=== PATIENT | female | born 1990 | race Caucasian/White ===

== ENCOUNTER 2023-12-19 21:59 | Observation (INO) ==
--- NOTE | 2023-12-19 23:18 | Emergency Department Note ---
Impression & Plan Cholecystitis, Right upper quadrant abdominal pain ED Provider Note CHIEF COMPLAINT: Right upper quadrant pain HISTORY OF PRESENT ILLNESS: This 33-year-old female patient presents to the emergency department via private vehicle for evaluation of right upper quadrant pain. The patient describes a burning sensation which has been ongoing since 530. She states approximately 30 to 45 minutes prior to this, she ate cooked cauliflower with butter. The patient reports history of "problems" with her gallbladder. She reports history of polyps and states that she has had infections in the past. She states most recently was about 2 years ago when she was in [place]. She was treated with antibiotics and never followed up with a surgeon because she did not have any insurance at the time. Patient states she has not followed up locally here with either primary care or surgery, though notes she does have insurance. She did not take any medication tonight to help with her pain. She states that the pain is waxing and waning. It does not radiate anywhere. She denies any exacerbating or alleviating factors. She does not have 1-2 episodes of vomiting after the onset of the pain. The patient felt that the vomiting did help with her pain. REVIEW OF SYSTEMS: A 10 system review of systems was performed with positives and pertinent negatives listed in the history of present illness. All other systems were reviewed and are negative. ALLERGIES: Tramadol, morphine PHYSICAL EXAM: VITALS: Vitals are noted on the nurse's note and reviewed by myself. Vital signs stable. GENERAL: This is a 33-year-old female, in no acute distress, nondiaphoretic, well-developed well-nourished. SKIN: The skin was without rashes, erythema, edema, or bruising. There is no tenting of the skin. Capillary refill less than 2 seconds. HEAD: Normocephalic atraumatic. EYES: Conjunctivae without injection, sclerae without icterus. NECK: Supple without nuchal rigidity. No lymphadenopathy. Cervical spine is nontender. No JVD. HEART: Regular rate and rhythm without murmurs gallops or rubs. LUNGS: Clear to auscultation bilaterally without wheezes, rales or rhonchi. No retractions or accessory muscle use. ABDOMEN: Positive bowel sounds x 4. Soft, nontender, without masses or organomegaly. Mortensen sign positive. No guarding or rebound tenderness. No CVA tenderness bilaterally. MUSCULOSKELETAL: No muscle atrophy, erythema, or edema noted. Full range of motion without joint tenderness in all extremities. No tenderness to palpation. Normal gait. Strength 5/5 throughout. NEURO: Patient was alert and oriented to person place and time. No focal neurological deficits. 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 The monitor showed a normal sinus rhythm at a ventricular rate of 64 bpm, per my interpretation. Imaging as interpreted by myself and the radiologist revealed question trace pericholecystic fluid, reported positive sonographic Mortensen sign, no cholelithiasis and normal CBD, with radiologist interpretation as noted. I agree with the radiologist's findings as based upon my independent interpretation. EMERGENCY DEPARTMENT COURSE: The patient was seen and evaluated as above. The patient presents to the emergency department for right upper quadrant pain. This started approximately 5 hours prior to arrival. The patient does report a history of "gallbladder problems". She has been treated with antibiotics for cholecystitis in the past. The patient is concerned for gallbladder etiology of her pain. IV access was obtained, labs are drawn. Labs reviewed. Per my interpretation, no leukocytosis or anemia. No thrombocytopenia. Renal, hepatic function and electrolytes without significant abnormality. Lipase 13. hCG negative. Urinalysis negative for blood or evidence of infection. Ultrasound was completed and reviewed by myself radiologist as noted. This was concerning for very cholecystic fluid and some inflammation of the gallbladder, but normal CBD and no cholelithiasis. There was a positive Mortensen sign. Patient was medicated with IV Toradol and Zofran as well as IV fluids. On reevaluation, the patient notes improvement in her pain, but is continuing to experience right upper quadrant abdominal pain with tenderness on repeat abdominal exam. She is no longer nauseated or vomiting. Given her persistent pain as well as ultrasound findings, I did recommend evaluation by general surgery. I discussed case with Eric Montiel PA-C with general surgery. He did see the patient and recommended admission and requested the medicine team complete the admission, as he once the patient have a HIDA scan. Patient was started on IV Zosyn. I discussed the case with Dr. Olvera, [facility] hospitalist physician regarding admission. Please see general surgery and hospitalist dictation regarding ongoing management and care of this patient. Case was discussed with the attending physician. This visit is during a period of high volume and high acuity in the emergency department. I attest that I have personally reviewed the patient medication list. I attest that I have reviewed the patient's blood pressure and it was found to be normotensive GCS: 15 In the evaluation and treatment of this patient the following differential diagnoses were entertained: appendicitis, diverticulitis, obstruction, inflammatory bowel disease, renal colic, PUD, biliary pathology, pancreatitis, mesenteric ischemia, aortic pathology, infections, genitourinary, UTI, perforated viscus, as well as others were entertained. The chart was completed utilizing [employer] Speech voice recognition software. Grammatical errors, random word insertions, pronoun errors, and incomplete sentences are an occasional consequence of this system due to software limitations, ambient noise, and hardware issues. Any formal questions or concerns about the content, text, or information contained within the body of this dictation should be directly addressed to the provider for clarification. Past Med/Surg History Problem List Right upper quadrant abdominal pain (Acute) Cholecystitis (Acute) Bilateral hip joint arthritis Medical History No pertinent past medical history Social History Smoking Status: Current every day smoker Tobacco Type: Cigarettes Preferred Language: Swazi Feels Safe at Home: Yes Allergies Allergies Allergy/AdvReac Type Severity Reaction Status Date / Time tramadol Allergy Intermediate HIVES/RASH Verified 03/01/23 01:53 morphine AdvReac Severe SEVERE Verified 03/01/23 01:53 VOMITING Home Meds Home Medications Medication Instructions Recorded Confirmed No Known Home Medications 03/01/23 03/01/23 Results & Data (ED) Vital Signs Vital Signs - 24 hr 12/19/23 22:10 12/19/23 22:50 12/19/23 23:29 Temperature 36.8 C Temperature Source Oral Pulse Rate 82 87 Pulse Rate [Finger] 64 Pulse Rhythm Regular Pulse Rhythm [Finger] Pulse Strength [Finger] Respiratory Rate 18 19 18 Respiratory Effort / Characteristics Non-Labored Spontaneous Respiratory Depth Normal Respiratory Pattern Regular Blood Pressure 126/80 Blood Pressure [Right Arm] 114/80 Blood Pressure Mean 95 Blood Pressure Mean [Right Arm] 91 Blood Pressure Position [Right Arm] Pulse Oximetry 99 100 98 Oxygen Delivery Method Room Air Room Air Room Air Sepsis Recent Fever Within 48 Hours No Sepsis New/Unexplained Change in Mental Status N/A Sepsis Action Taken by Nursing No Action Required 12/20/23 00:42 12/20/23 00:54 12/20/23 02:00 Temperature Temperature Source Pulse Rate 67 Pulse Rate [Finger] 69 77 Pulse Rhythm Pulse Rhythm [Finger] Regular Regular Pulse Strength [Finger] Normal Normal Respiratory Rate 18 18 Respiratory Effort / Characteristics Non-Labored Spontaneous Non-Labored Spontaneous Respiratory Depth Normal Normal Respiratory Pattern Regular Regular Blood Pressure Blood Pressure [Right Arm] 119/72 112/69 Blood Pressure Mean Blood Pressure Mean [Right Arm] 87 83 Blood Pressure Position [Right Arm] Semi-fowlers Lying Pulse Oximetry 98 98 Oxygen Delivery Method Room Air Room Air Sepsis Recent Fever Within 48 Hours Sepsis New/Unexplained Change in Mental Status Sepsis Action Taken by Nursing 12/20/23 04:00 12/20/23 04:40 Temperature Temperature Source Pulse Rate 55 L Pulse Rate [Finger] 67 Pulse Rhythm Pulse Rhythm [Finger] Regular Pulse Strength [Finger] Normal Respiratory Rate 18 Respiratory Effort / Characteristics Non-Labored Spontaneous Respiratory Depth Normal Respiratory Pattern Regular Blood Pressure Blood Pressure [Right Arm] 107/54 L Blood Pressure Mean Blood Pressure Mean [Right Arm] 71 Blood Pressure Position [Right Arm] Lying Pulse Oximetry 98 Oxygen Delivery Method Room Air Sepsis Recent Fever Within 48 Hours Sepsis New/Unexplained Change in Mental Status Sepsis Action Taken by Nursing Laboratory Data 12/19/23 23:39 12/19/23 23:39 Lab Results 12/19/23 12/19/23 Range/Units 23:23 23:39 WBC 8.73 (4.8-10.8) K/ul RBC 3.98 L (4.20-5.40) M/uL Hgb 12.0 (12.0-16.0) g/dl Hct 35.9 L (37.0-47.0) % MCV 90.2 (80.0-100.0) fL MCH 30.2 (25.0-34.0) pg MCHC 33.4 (32.0-36.0) g/dL RDW Std Deviation 47.5 H (36.4-46.3) fL RDW Coeff of Jason 14.3 (11.5-14.5) % Plt Count 204 (130-400) K/uL MPV 12.0 (9.4-12.4) fL Immature Gran % (Auto) 0.1 % Neut % (Auto) 50.9 % Lymph % (Auto) 38.8 % [place] % (Auto) 6.5 % Eos % (Auto) 3.2 % Baso % (Auto) 0.5 % Neut # (Auto) 4.44 (1.40-6.50) K/uL Lymph # (Auto) 3.39 (1.20-3.40) K/uL [place] # (Auto) 0.57 (0.11-0.59) K/uL Eos # (Auto) 0.28 (0.00-0.50) K/uL Baso # (Auto) 0.04 (0.00-0.20) K/uL Immature Gran # (Auto) 0.01 (0.01-0.20) K/uL Sodium 140 (136-145) mmol/L Potassium 3.5 (3.5-5.1) mmol/L Chloride 108 H (98-107) mmol/L Carbon Dioxide 28 (21-32) mmol/L Anion Gap 4 (3-11) BUN 8 (6-23) mg/dl Creatinine 0.62 (0.6-1.2) mg/dl Est Cr Clr Drug Dosing 109.4 ml/min Est GFR ( Amer) 136.4 ml/min Est GFR (Non-Af Amer) 117.6 ml/min BUN/Creatinine Ratio 12.9 (10-20) Glucose 104 H (70-99(Fasting)) mg/dl Calcium 8.5 L (8.6-10.3) mg/dl Total Bilirubin 0.2 (0.2-1.0) mg/dl AST 14 (13-39) U/L ALT 11 (7-52) U/L Alkaline Phosphatase 37 (34-104) U/L Total Protein 6.5 (6.0-8.3) gm/dl Albumin 4.1 (3.4-5.0) gm/dl Globulin 2.4 L (2.5-4.0) gm/dl Albumin/Globulin Ratio 1.7 (0.9-2) Lipase 13 (11-82) U/L HCG, Qual Negative (Negative) Urine Color Yellow Urine Appearance Clear (Clear) Urine pH 6.5 (4.5-7.5) Ur Specific [place] 1.027 (1.000-1.030) Urine Protein Negative (Negative) Urine Glucose (UA) Negative (Negative) Urine Ketones Negative (Negative) Urine Blood Negative (Negative) Urine Nitrite Negative (Negative) Urine Bilirubin Negative (Negative) Urine Urobilinogen Negative (Negative) Ur Leukocyte Esterase Negative (Negative) Administered Medications Discontinued Medications Sodium Chloride (Nss) 1,000 mls @ 999 mls/hr IV .Q1H1M ONE Stop: 12/19/23 23:52 Last Infusion: 12/20/23 00:39 Dose: Infused Documented By: Admin: 12/19/23 23:32 Dose: 999 mls/hr Documented By: IDD Piperacillin Sod/Tazobactam Sod (Zosyn) 4.5 gm in 120 mls @ 240 mls/hr IV NOW ONE Stop: 12/20/23 05:16 Last Admin: 12/20/23 05:02 Dose: 240 mls/hr Documented By: IDD Ketorolac Tromethamine (Ketorolac 30 Mg/Ml Vial) 30 mg IV NOW STA Stop: 12/20/23 00:18 Last Admin: 12/20/23 00:39 Dose: 30 mg Documented By: IDD Ondansetron HCl (Ondansetron Inj 2 Mg/Ml 2 Ml Vial) 4 mg IV NOW STA Stop: 12/20/23 00:18 Last Admin: 12/20/23 00:39 Dose: 4 mg Documented By: IDD Imaging Data Radiologist's Impression: Abdomen Ultrasound 12/20/23 00:00 Exam(s): US ABDOMEN LIMITED EXAM: US Abdomen Limited, Right Upper Quadrant CLINICAL HISTORY: Reason for exam: RUQ pain. TECHNIQUE: Real-time ultrasound of the right upper quadrant with image documentation. COMPARISON: None. FINDINGS: Liver: Liver measures 16 cm in length. No solid mass. A 1.1 x 0.5 cm cyst is seen at the peripheral aspects of the left hepatic lobe. No intrahepatic bile duct dilation. Gallbladder: A somewhat distended bladder. No gallstones. Normal bladder wall thickness. Question trace pericholecystic fluid. Reported positive sonographic Mortensen's sign. Common bile duct: Unremarkable as visualized. No stones. No dilation. Pancreas: Partially obscured by bowel gas. Unremarkable as visualized. Right kidney: 10.9 cm in length. No stones. No solid mass. No hydronephrosis.. IMPRESSION: No demonstrated cholelithiasis. Question trace pericholecystic fluid. Reported positive sonographic Mortensen's sign. The need for nuclear HIDA scan can be determined clinically. Normal CBD. Otherwise unremarkable right upper quadrant abdominal ultrasound.. Electronically signed by: Jennie Mulligan MD, CRISTOPHER 12/20/23 03:57 AM Discharge Plan Visit Data Chief Complaint: Abdominal Pain Stated Complaint: SHARP BRUNING PAIN/ABD/GAL BLADDER ED Provider: Rene Mcqueen ED Midlevel Provider: Alba Figueredo Discharge Problem: Cholecystitis, Right upper quadrant abdominal pain Patient Disposition: Being Evaluated by Surgeon Forms Stand Alone Forms: [facility] Shortlist Prescriptions Prescriptions: No Action No Known Home Medications Referrals Referrals: PCP,NO [Primary Care Provider] -
[2023-12-19] MEDS: SODIUM CHLORIDE 0.9% 1,000 ML IV ONE (23:32)
[2023-12-19 23:35] LABS: Appearance Urine Clear (Clear); Bilirubin Urine Negative (Negative); Blood Urine Negative (Negative); Color Urine Yellow; Glucose Urine UA Negative (Negative); Ketones Urine Negative (Negative); Leukocyte Esterase Urine Negative (Negative); Nitrite Urine Negative (Negative); Protein Urine Negative (Negative); Specific Gravity Urine 1.027 (1.000-1.030); Urobilinogen Urine Negative (Negative); pH Urine 6.5 (4.5-7.5)
[2023-12-20 00:03] LABS: Basophils # (auto) 0.04 K/uL (0.00-0.20); Basophils % (auto) 0.5 %; Eosinophils # (auto) 0.28 K/uL (0.00-0.50); Eosinophils % (auto) 3.2 %; Hematocrit (blood only) 35.9 % (37.0-47.0); Immature Granulocytes # (auto) 0.01 K/uL (0.01-0.20); Immature Granulocytes % (auto) 0.1 %; Lymphocytes # (auto) 3.39 K/uL (1.20-3.40); Lymphocytes % (auto) 38.8 %; Mean Corpuscular Hemoglobin 30.2 pg (25.0-34.0); Mean Corpuscular Hgb Conc 33.4 g/dL (32.0-36.0); Mean Corpuscular Volume 90.2 fL (80.0-100.0); Monocytes # (auto) 0.57 K/uL (0.11-0.59); Monocytes % (auto) 6.5 %; Neutrophils # (auto) 4.44 K/uL (1.40-6.50); Neutrophils % (auto) 50.9 %; Platelet Count 204 K/uL (130-400); RDW Coefficient of Variation 14.3 % (11.5-14.5); RDW Standard Deviation 47.5 fL (36.4-46.3); Red Blood Count 3.98 M/uL (4.20-5.40); White Blood Count 8.73 K/ul (4.8-10.8)
[2023-12-20 00:15] LABS: Albumin Globulin Ratio 1.7 (0.9-2); Albumin Level 4.1 gm/dl (3.4-5.0); BUN Creatinine Ratio 12.9 (10-20); Bilirubin,Total 0.2 mg/dl (0.2-1.0); Calcium 8.5 mg/dl (8.6-10.3); Creatinine Clr Calc Pharmacy 109.4 ml/min; Est GFR (African American) 136.4 ml/min; Est GFR (Non-African American) 117.6 ml/min; Globulin 2.4 gm/dl (2.5-4.0); Potassium 3.5 mmol/L (3.5-5.1); Total Protein 6.5 gm/dl (6.0-8.3)
[2023-12-20 00:21] LABS: Pregnancy Test, Serum Negative (Negative)
[2023-12-20] MEDS: KETOROLAC 30 MG/ML VIAL IV STA (00:39)
[2023-12-20] MEDS: ONDANSETRON INJ 2 MG/ML 2 ML VIAL IV STA (00:39)
--- NOTE | 2023-12-20 03:58 | Ultrasound Report ---
Exam(s): US ABDOMEN LIMITED EXAM: US Abdomen Limited, Right Upper Quadrant CLINICAL HISTORY: Reason for exam: RUQ pain. TECHNIQUE: Real-time ultrasound of the right upper quadrant with image documentation. COMPARISON: None. FINDINGS: Liver: Liver measures 16 cm in length. No solid mass. A 1.1 x 0.5 cm cyst is seen at the peripheral aspects of the left hepatic lobe. No intrahepatic bile duct dilation. Gallbladder: A somewhat distended bladder. No gallstones. Normal bladder wall thickness. Question trace pericholecystic fluid. Reported positive sonographic Mortensen's sign. Common bile duct: Unremarkable as visualized. No stones. No dilation. Pancreas: Partially obscured by bowel gas. Unremarkable as visualized. Right kidney: 10.9 cm in length. No stones. No solid mass. No hydronephrosis.. IMPRESSION: No demonstrated cholelithiasis. Question trace pericholecystic fluid. Reported positive sonographic Mortensen's sign. The need for nuclear HIDA scan can be determined clinically. Normal CBD. Otherwise unremarkable right upper quadrant abdominal ultrasound.. Electronically signed by: Jennie Mulligan MD, TAYAR 12/20/23 03:57 AM
[2023-12-20] MEDS: PIPERACILLIN/TAZOBACTAM 4.5 GM/120 ML BAG IV ONE (05:02)
--- NOTE | 2023-12-20 05:14 | Surgery Consultation ---
Date of Consultation December 20, 2023 Assessment & Plan (1) Right upper quadrant abdominal pain: I discussed with the treating clinician the emergency department we are requesting medical admission for the patient As noted the patient does have significant abdominal pain, however there is no clear evidence of cholecystitis and there is no cholelithiasis noted on her ultrasound. In addition, her LFTs and lipase are normal. In order to further delineate if the cause of patient's abdominal pain is michaela rly her gallbladder we will order a HIDA scan and request that a gallbladder ejection fraction be done with this study. If her HIDA scan demonstrates that patient has a biliary cause of her abdominal pain consideration will be given to performing a cholecystectomy In the interim patient should be kept n.p.o. Antibiotics have been initiated in the emergency department and may continue Analgesics should be continued Antiemetics to be continued Further hydration with intravenous fluid should be employed At the present time patient is normotensive without tachycardia or fever and is nontoxic-appearing. Additional recommendations with forthcoming based on pending studies and her clinical course as it unfolds Supervising Physician Co-Signing Physician Notes This case was discussed with the surgical PA overnight. I agreed with this plan. Upon seeing the patient this am, I recommend add Protonix to her current regimen. GI to consider EGD as she is still displaying tenderness this am epigastric and RUQ. HIDA without acute cholecystitis, possible some level of dyskinesia but not convinced that is causing prolonged symptoms to this severity when she has now been NPO for several hours. History of Present Illness Reason for Consultation: Abdominal pain History of Present Illness Patient says that her current episode of pain began yesterday after eating. She has associated nausea and vomiting but did not have any fevers, shakes, or chills. Patient has not noted any radiation or modifying factors to her pain. The patient does note that she has been having on and off abdominal pain for approximately 2 years. She previously sought medical care in [place] and was told that she needed to have her gallbladder removed but never did so due to insurance reasons. She does note that her pain is sometimes but not always triggered by eating food. She has had prior abdominal surgeries in the form of 2 C-sections and a tubal ligation. This is a 33-year-old female who presented emergency department secondary to abdominal pain. Since arrival to the emergency department the patient has had an abdominal ultrasound which independent reviewed. There were no gallstones noted but the patient did have questionable pericholecystic fluid. Common bile duct appeared normal on the study. The gallbladder was somewhat distended. However the gallbladder wall was of normal thickness. Labs included CBC white blood cell count and platelet count were normal. Hemoglobin was normal. Her hematocrit was 35.9. Chemistry profile showed sodium and potassium in the BUN and creatinine were normal. Her LFTs were nonelevated. Her lipase was not elevated. A test was negative. A urinalysis without active infection. Of note, the patient did have a [facility]. This study showed the absence of gallstones but the patient was noted to have gallbladder polyps. There is no evidence of acute cholecystitis on the study. At the time my interview the patient continued to have pain in the right upper quadrant of her abdomen but was in no distress. Concerning past medical history the patient says that she suffers from arthritis but denies any other medical problems Concerning past surgical history she had abdominal surgeries listed above and she also had bilateral hip surgeries secondary to arthritis Concerning social history she currently smokes cigarettes Concerning family history she had an aunt that suffered from gallbladder disease Allergies Allergy/AdvReac Type Severity Reaction Status Date / Time tramadol Allergy Intermediate HIVES/RASH Verified 03/01/23 01:53 morphine AdvReac Severe SEVERE Verified 03/01/23 01:53 VOMITING Home Medications Medication Instructions Recorded Confirmed Type No Known Home Medications 03/01/23 12/20/23 History Patient History Medical History No pertinent past medical history Social History Smoking Status: Current every day smoker Tobacco Type: Cigarettes Preferred Language: Panamanian Feels Safe at Home: Yes Review of Systems Review of Systems: All systems reviewed & are unremarkable except as noted in HPI & below Physical Exam Constitutional: WD/WN, vitals as above Eyes: No scleral jaundice noted, patient wears glasses ENMT: Ears: no hearing impairment and no external ear abnormality No sublingual jaundice noted Neck: trachea midline Respiratory: normal respiratory effort; no respiratory distress and no labored breathing Cardiovascular: Rate/Rhythm: regular rate and regular rhythm Gastrointestinal (Abdomen): Abdomen is soft and nondistended. It is nonrigid. Patient did have significant pain with palpation in the right upper quadrant. Musculoskeletal: No calf tenderness Skin: + rash Neurologic: moves all extremities Psychiatric: A+Ox3, euthymic affect Results & Data Vital Signs (Past 12 Hours) Vital Signs Temp Pulse Pulse Resp BP BP Pulse Ox 12/20/23 04:40 55 L 12/20/23 04:00 67 18 107/54 L 98 12/20/23 02:00 77 18 112/69 98 12/20/23 00:54 67 12/20/23 00:42 69 18 119/72 98 12/19/23 23:29 87 18 98 12/19/23 22:50 64 19 114/80 100 12/19/23 22:10 36.8 C 82 18 126/80 99 O2 Del Method 12/20/23 04:40 12/20/23 04:00 Room Air 12/20/23 02:00 Room Air 12/20/23 00:54 12/20/23 00:42 Room Air 12/19/23 23:29 Room Air 12/19/23 22:50 Room Air 12/19/23 22:10 Room Air PG Care Time/CCT Total # of Minutes Spent Total Time Spent with Patient: Total time spent is greater than 50% in coordination of care (as documented) at patient's floor/unit and/or counseling patient: Coding Level of Care Code 07095 IN/OBS CONSULT LVL 5,80M Diagnoses Right upper quadrant abdominal pain R10.11
[2023-12-20] MEDS: ACETAMINOPHEN 1,000 MG/100 ML VIAL IV STA (05:44)
--- NOTE | 2023-12-20 10:41 | Nuclear Medicine Report ---
NUCLEAR MEDICINE HEPATOBILIARY SCAN WITH EJECTION FRACTION HISTORY: abdominal pain COMPARISON: Abdominal ultrasound 12/20/2023. TECHNIQUE: Immediately following the intravenous administration of 5.3 mCi Tc-99m Choletec, dynamic a nterior abdominal imaging pre/post 1.4 mcg of Kinevac was performed. FINDINGS: Uniform hepatic tracer accumulation is shown. Prompt intrahepatic biliary excretion is seen. The gall bladder, common bile duct, and small bowel are all visualized by 25 minutes. This appearance represen ts the normal sequence of biliary excretion. The gall bladder ejection fraction following administration of Kinevac was 24% (normal >35%). This co uld be abnormally decreased due the radiotracer within the overlapping bowel. IMPRESSION: 1. No evidence for cystic duct obstruction. 2. Abnormal gallbladder ejection fraction calculated to be 24 %. This could be abnormally decreased d ue to the radiotracer within the overlapping bowel. ACT 112: Negative or not required by law. Electronically signed by: Pablo Scott M.D. 12/20/2023 10:40 AM
--- NOTE | 2023-12-20 10:59 | Communication Note ---
Date of Service: December 20, 2023 HIDA scan not reading acute cholecystitis, no acute surgical intervention. Added Protonix BID, pt has a history of gastric ulcer with bleeding. Could consider GI consult, pt reports she usually controls symptoms with her diet however was on vacation this past weekend and did not follow diet plan. She can follow up with general surgery outpatient for discussion on cholecystectomy.
--- NOTE | 2023-12-20 11:28 | Emergency Department Note ---
ED Visit Note I did review the HIDA scan findings with the patient. Patient was seen in the ED overnight and has been experiencing right upper quadrant abdominal pain. Patient was seen by the general surgery service and the decision to admit was placed by Alba Figueredo PA-C. After reviewing he HIDA scan with the patient, patient does desire to proceed with inpatient management. Case further discussed with Dr. Sommers. Please refer to further documentation regarding her stay. .
--- NOTE | 2023-12-20 11:32 | History & Physical Report ---
Date of Service December 20, 2023 Assessment & Plan (1) Right upper quadrant abdominal pain: Plan: Right upper quadrant, epigastric pain.? Peptic ulcer disease No transaminitis. Gallbladder with slight pericholecystic fluid; HIDA is negative. No leukocytosis. Patient with increasing pain after meals Suspect this is PUD/gastric versus duodenal ulcers. Patient has daily NSAID use of many years of at least 800 mg of ibuprofen and up to 2400 mg of ibuprofen daily for chronic joint pain. She has had a history of bleeding ulcers several years ago, these resolved with medical treatment and she never had an endoscopy due to being uninsured in [place] per patient report. She does not follow with a director search BUN is not elevated, hemoglobin is normal, and she has not had any hematochezia/melena to suggest upper blood GI bleeding requiring urgent endoscopy NSAIDs discontinued. Continue Tylenol. PPI twice daily therapy. DDx includes biliary disease given symptoms after food and right upper quadrant greater than epigastric pain; however suspect this is less likely especially given her negative HIDA. She does have some pericholecystic fluid Patient endorses severe abdominal bloating after meals Was also previously on orlistat. Has not taken this in 5 days, this is likely contributing to her bloating with fatty foods however she has not taken this in several days and does not appear to have contributed to her acute presentation Lower abdominal vale are without tenderness and she has no rebound/guarding. CT deferred to treatment as above and clinical reassessment. - KUB ordered to eval for any free air/perf ulcer; she is not toxic or peritoneal appearing at the bedside If evidence of bleeding develops or refractory symptoms, consult GI for EGD evaluation. If her symptoms improve with PPI/GI cocktail therapy and her BUN/creatinine remained stable then can follow-up as outpatient Case management consulted to help facilitate PCP referral As there is no signs of acute cholecystitis on HIDA, she does have quentin kocytosis, and may be due to PUD will discontinue antibiotics and follow serial labs. 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 She does not know the name of her condition but notes she did have bilateral femoral rods placed. Records are pending from her providers in [place] - Thinks hip sx was Dr. Jose Manuel New ([place], [place]). - Last PCP was Dr. Chavira in [place], [place] at [facility]. Records pending Plan DVT prophylaxis: SCDs Diet: Clears, n.p.o. pending reevaluation for EGD needs Disposition: MedSur CODE STATUS: Full code History of Present Illness Primary Care Provider: NO PCP Selena is a 33-year-old female with a past medical history of hip arthritis and GI issues followed in [place] who presented with right upper quadrant pain. Over the past few years has had issues with cholecystitis treated medically with antibiotics Did not get a ovi because always improved with abx and did not have insurance at the time Patient has also been taking Sukhwinder/orlistat, has not taken this in around 5 days. Gets cold at night and some sweats at night normally, no change in th elast 3 years. Denies new fever, chills. Endorses nausea, and a lot of vomiting yesterday. Emesis was brownish. No blood/melena. No bloody or black bowel movements No diarrhea today Has a history of a deteriorating bone disease which requried hip surgeries at age 11, 12. Has hardware and rods in both hips. This was performed in [place],believes this was Dr. Jose Manuel New ([place], [place]). Last PCP was Dr. Chavira in [place], [place] at [facility]. No prescription medications No recent prescripation Has never had an upper endo or colonoscopy Does have a hsitory of severe GERD and heartburn. Gets this with any greasy or fatty foods. Takes 800mg ibuprofen and 500mg ibuprofen at least once a day, sometimes ibuprofen up to three times per day. Has used ibuprofen thi spa week. Does not notice an association that the ibuprofen makes the epigastric/RUQ pain worse. RUQ is much more tender than epigastric, but is tender in both Yesterday had resurgence of pain similar to which needed tx - Had greasy and oil food when in [place] thi prior to onset of severe pain. [place] foods have triggered gallbladder attacks in the past - Endorses some loose BMs in the last week - No greasy or monserrat colored bowel movements, but has had loose/greasy BMs in the past and when on Sukhwinder - Has a history of bleeding ulcers in 2008, did not have an EGD at the time. "If you don't have insurance down there they just won't touch you." Moved to [place] with her boyfriend. Has been here for 2 years now. Does nto have a PCP here yet, just got insurance and docs for her kids and is working on establishing with a PCP. - Normal food does not always affect her pain. Doesnotice some swelling after eating bad foods and gets easy bloating. Medical History: Reviewed Medications: Reviewed Surgical History: Reviewed Family history: Reviewed Allergies: Reviewed. Morphine --> vomiting. Tramdol --> Itching Social History: 1ppd cigarette use. Vapes at work when she can't smoke. Rare social ETOH. Rare marijuana edible, none recently Code Status: Full Code Allergies Allergy/AdvReac Type Severity Reaction Status Date / Time tramadol Allergy Intermediate HIVES/RASH Verified 03/01/23 01:53 morphine AdvReac Severe SEVERE Verified 03/01/23 01:53 VOMITING Home Medications Medication Instructions Recorded Confirmed Type No Known Home Medications 03/01/23 12/20/23 History Past Med/Surg History Problem List (Updated 12/20/23 @ 11:55 by Andres Sommers MD) Peptic ulcer disease Right upper quadrant abdominal pain (Acute) Cholecystitis (Acute) Bilateral hip joint arthritis Medical History No pertinent past medical history Social History Smoking Status: Current every day smoker Tobacco Type: Cigarettes Preferred Language: Ecuadorean Feels Safe at Home: Yes Physical Exam Physical Exam: General: A&Ox3. NAD. Cooperative. HEENT: Atraumatic, normocephalic. Pulm: CTAB A&P. -wheezes, -rales, -rhonchi. Symmetrical chest rise. No increased work of breathing. No respiratory distress. Cardiac: RRR, -mrg. Radial pulses intact and symmetrical. Abdominal: RUQ prominently TTP, epigastrum TTP. No rebound/guarding Ext: Warm, dry Results & Data Results & Data Vital Signs (Past 12 Hours) Vital Signs Pulse Pulse Resp BP Pulse Ox O2 Del Method 12/20/23 10:30 58 L 18 123/68 58 L Room Air 12/20/23 07:35 73 18 122/2 L 98 Room Air 12/20/23 06:00 59 L 18 103/68 97 Room Air 12/20/23 04:40 55 L 12/20/23 04:00 67 18 107/54 L 98 Room Air 12/20/23 02:00 77 18 112/69 98 Room Air 12/20/23 00:54 67 12/20/23 00:42 69 18 119/72 98 Room Air 12/19/23 23:29 87 18 98 Room Air PG Care Time/CCT Total # of Minutes Spent Total Time Spent with Patient: Total time spent is greater than 50% in coordination of care (as documented) at patient's floor/unit and/or counseling patient: Coding Level of Care Code 87608 INT INP/OBS CARE 3/75MIN Diagnoses Right upper quadrant abdominal pain R10.11 Peptic ulcer disease K27.9 Bilateral hip joint arthritis M16.0
[2023-12-20] MEDS ORDERED: ALUMINUM/MAGNESIUM SUSP 30 ML UDC PO PRN (12:08)
[2023-12-20] MEDS: ALUMINUM/MAGNESIUM SUSP 30 ML UDC PO STA (12:14)
--- NOTE | 2023-12-20 13:24 | XRay Report ---
KUB HISTORY: Acute onset abdominal pain abdominal pain, r/o subdiaph free air COMPARISON: Abdominal ultrasound 12/20/2023 FINDINGS: Nonobstructive bowel gas pattern. Moderate fecal retention of the transverse colon. Renal s hadows are partially obscured by bowel gas. No renal calculi. No ureteral calculi. No pneumoperitoneu m or pneumatosis. Cannulated screws of the proximal femora. No fracture. IMPRESSION: 1. Nonobstructive bowel gas pattern. 2. No pneumoperitoneum identified by radiography. ACT 112: Negative or not required by law. The above report was generated using voice recognition software. It may contain grammatical, syntax o r spelling errors. Electronically signed by: Amos aDily M.D. 12/20/2023 1:22 PM
[2023-12-20] MEDS ORDERED: POLYETHYLENE (MIRALAX) 17 GM PACK PO PRN (15:07)
[2023-12-20] MEDS ORDERED: ACETAMINOPHEN 325 MG TAB PO PRN (15:07)
[2023-12-20] MEDS: ACETAMINOPHEN 325 MG TAB PO PRN (15:36)
[2023-12-20 16:10] LABS: Hematocrit (blood only) 37.2 % (37.0-47.0); Hemoglobin 12.3 g/dl (12.0-16.0)
[2023-12-20] MEDS: NICOTINE 21 MG/24 HR TDSY TD SCH (16:39)
[2023-12-20] MEDS: SINCALIDE 1.4 MCG in 0.9 % SODIUM CHLORIDE 100 ML IV ONE (16:39)
[2023-12-20] MEDS: HYDROmorphone INJ 0.5 MG/0.5 ML SYR IV PRN (17:23)
[2023-12-20] MEDS: ONDANSETRON INJ 2 MG/ML 2 ML VIAL IV PRN (17:24)
[2023-12-20] MEDS: LACTATED RINGER'S 1,000 ML IV SCH (17:28)
[2023-12-20] MEDS: PANTOprazole 40 MG in SYRINGE 0 ML IV SCH (20:21)
[2023-12-20] MEDS: ACETAMINOPHEN 1,000 MG/100 ML VIAL IV PRN (21:31)
[2023-12-20 23:15] LABS: Hematocrit (blood only) 35.1 % (37.0-47.0); Hemoglobin 11.4 g/dl (12.0-16.0)
[2023-12-21 08:26] LABS: Hemoglobin 11.2 g/dl (12.0-16.0); Mean Corpuscular Hemoglobin 29.6 pg (25.0-34.0); Mean Corpuscular Hgb Conc 32.9 g/dL (32.0-36.0); Mean Corpuscular Volume 89.9 fL (80.0-100.0); Mean Platelet Volume 12.3 fL (9.4-12.4); Platelet Count 167 K/uL (130-400); RDW Coefficient of Variation 14.2 % (11.5-14.5); RDW Standard Deviation 47.1 fL (36.4-46.3); Red Blood Count 3.78 M/uL (4.20-5.40); White Blood Count 5.13 K/ul (4.8-10.8)
[2023-12-21 08:52] LABS: Basophils # (auto) 0.05 K/uL (0.00-0.20); Eosinophils # (auto) 0.19 K/uL (0.00-0.50); Eosinophils % (auto) 3.7 %; Immature Granulocytes # (auto) 0.01 K/uL (0.01-0.20); Immature Granulocytes % (auto) 0.2 %; Lymphocytes # (auto) 2.64 K/uL (1.20-3.40); Lymphocytes % (auto) 51.5 %; Monocytes # (auto) 0.32 K/uL (0.11-0.59); Monocytes % (auto) 6.2 %; Neutrophils # (auto) 1.92 K/uL (1.40-6.50); Neutrophils % (auto) 37.4 %
[2023-12-21 09:13] LABS: Calcium 7.8 mg/dl (8.6-10.3); Potassium 3.7 mmol/L (3.5-5.1)
[2023-12-21 09:19] LABS: BUN Creatinine Ratio 11.7 (10-20); Est GFR (African American) 137.8 ml/min; Est GFR (Non-African American) 118.9 ml/min
[2023-12-21 11:45] LABS: Amphetamines+Metham, Urine Neg (Neg); Barbiturates, Urine Neg (Neg); Benzodiazepine, Urine Neg (Neg); Cocaine, Urine Neg (Neg); Fentanyl, Urine Neg (Neg); MDMA (Ecstacy), Urine Neg (Neg); Marijuana, Urine Pos (Neg); Methadone, Urine Neg (Neg); Opiate, Urine Pos (Neg); Phencyclidine, Urine Neg (Neg)
--- NOTE | 2023-12-21 14:54 | Gastrointestinal Consultation ---
Date of Consultation December 21, 2023 Assessment & Plan (1) Right upper quadrant abdominal pain: Doubt biliary colic. Positive Carnett's sign suggest abdominal wall pain and not luminal GI etiology. However in light of episodic vomiting and the abdominal pain and a past history of peptic ulcer disease recommend proceeding with upper endoscopy to rule out upper GI pathology to explain her symptoms. Will plan to proceed on , December 21. (2) Vomiting: Differential diagnosis includes paresis, functional dyspepsia, cyclical vomiting syndrome in light of recurrent symptoms, peptic ulcer disease, gastritis. Doubt pancreatic or biliary etiology. Will proceed with endoscopy for further evaluation. History of Present Illness Reason for Consultation: Right upper quadrant pain and vomiting Attending Physician: Farzana Williamson MD History of Present Illness Patient is has a longstanding history of recurrent abdominal pain associated with vomiting that occurs several times yearly precipitated by eating. She has a past history of peptic ulcer disease in 2007 but no documented recurrence since then. Her pain on this admission is right upper quadrant worse with movement no clear relieving factors. Denies any hematemesis melena bright red blood per rectum. Being of her abdomen did not reveal any gallstones HIDA scan was unremarkable except for a slightly reduced ejection fraction. Allergies Allergy/AdvReac Type Severity Reaction Status Date / Time tramadol Allergy Intermediate HIVES/RASH Verified 03/01/23 01:53 morphine AdvReac Severe SEVERE Verified 03/01/23 01:53 VOMITING Home Medications Medication Instructions Recorded Confirmed Type No Known Home Medications 03/01/23 12/20/23 History Patient History Medical History No pertinent past medical history Social History Smoking Status: Current every day smoker Tobacco Type: Cigarettes and E-cigarettes / Vaping Cigarettes Per Day: 1 pack per day; Do You Dip or Chew Tobacco: No; Tobacco Cessation Education Requested by Patient: No Hx Alcohol Use: Yes Alcohol type: wine and hard liquor Hx Substance Use: Yes Last Used Substance: Unknown Last Used Substance Other:: Occasional use Preferred Language: British Communication Ability: Effective Assistant To The Ceo Required: No Beliefs That Will Affect Care: None Current Living Situation: Family and Significant Other Current Living Situation Comment: S/O with 4 kids Other Information That Helps Us Care for You: No Feels Safe at Home: Yes Safety Concerns: Feels Safe At This Time Assistive Devices: Cane Review of Systems Review of Systems: No fever No chills No SOB No CP positive abd pain Physical Exam Physical Exam: Eyes; anicteric HENT No masses Chest clear to A Cor S1, S2 physiologic Abd: Right upper quadrant tenderness no rebound positive Carnett's sign Ext no edema Results & Data Vital Signs (Past 12 Hours) Vital Signs Temp Pulse Resp BP Pulse Ox O2 Del Method 12/21/23 14:10 67 19 113/70 99 Room Air 12/21/23 14:10 36.7 C 68 16 119/74 98 Room Air 12/21/23 07:20 36.8 C 64 16 118/71 97 Room Air Laboratory Results Laboratory Results - last 48 hr 12/19/23 12/19/23 12/20/23 23:23 23:39 15:42 WBC 8.73 RBC 3.98 L Hgb 12.0 12.3 Hct 35.9 L 37.2 MCV 90.2 MCH 30.2 MCHC 33.4 RDW Std Deviation 47.5 H RDW Coeff of Jason 14.3 Plt Count 204 MPV 12.0 Immature Gran % (Auto) 0.1 Neut % (Auto) 50.9 Lymph % (Auto) 38.8 Bandera % (Auto) 6.5 Eos % (Auto) 3.2 Baso % (Auto) 0.5 Neut # (Auto) 4.44 Lymph # (Auto) 3.39 Bandera # (Auto) 0.57 Eos # (Auto) 0.28 Baso # (Auto) 0.04 Immature Gran # (Auto) 0.01 Sodium 140 Potassium 3.5 Chloride 108 H Carbon Dioxide 28 Anion Gap 4 BUN 8 Creatinine 0.62 Est Cr Clr Drug Dosing 109.4 Est GFR ( Amer) 136.4 Est GFR (Non-Af Amer) 117.6 BUN/Creatinine Ratio 12.9 Glucose 104 H Calcium 8.5 L Total Bilirubin 0.2 AST 14 ALT 11 Alkaline Phosphatase 37 Total Protein 6.5 Albumin 4.1 Globulin 2.4 L Albumin/Globulin Ratio 1.7 Lipase 13 HCG, Qual Negative Urine Color Yellow Urine Appearance Clear Urine pH 6.5 Ur Specific [place] 1.027 Urine Protein Negative Urine Glucose (UA) Negative Urine Ketones Negative Urine Blood Negative Urine Nitrite Negative Urine Bilirubin Negative Urine Urobilinogen Negative Ur Leukocyte Esterase Negative Urine Opiates Screen Ur Methadone, Qual Urine Fentanyl Screen Urine Barbiturates Ur Phencyclidine (PCP) U Amphetamin/Meth Scrn MDMA (Ecstasy) Screen U Benzodiazepines Scrn Ur Cocaine Metabolite U Marijuana (THC) Screen 12/20/23 12/21/23 12/21/23 22:51 07:50 10:55 WBC 5.13 RBC 3.78 L Hgb 11.4 L 11.2 L Hct 35.1 L 34.0 L MCV 89.9 MCH 29.6 MCHC 32.9 RDW Std Deviation 47.1 H RDW Coeff of Jason 14.2 Plt Count 167 MPV 12.3 Immature Gran % (Auto) 0.2 Neut % (Auto) 37.4 Lymph % (Auto) 51.5 Band[place] % (Auto) 6.2 Eos % (Auto) 3.7 Baso % (Auto) 1.0 Neut # (Auto) 1.92 Lymph # (Auto) 2.64 Bandera # (Auto) 0.32 Eos # (Auto) 0.19 Baso # (Auto) 0.05 Immature Gran # (Auto) 0.01 Sodium 141 Potassium 3.7 Chloride 111 H Carbon Dioxide 24 Anion Gap 6 BUN 7 Creatinine 0.60 Est Cr Clr Drug Dosing 113.0 Est GFR ( Amer) 137.8 Est GFR (Non-Af Amer) 118.9 BUN/Creatinine Ratio 11.7 Glucose 89 Calcium 7.8 L Total Bilirubin AST ALT Alkaline Phosphatase Total Protein Albumin Globulin Albumin/Globulin Ratio Lipase HCG, Qual Urine Color Urine Appearance Urine pH Ur Specific [place] Urine Protein Urine Glucose (UA) Urine Ketones Urine Blood Urine Nitrite Urine Bilirubin Urine Urobilinogen Ur Leukocyte Esterase Urine Opiates Screen Pos H Ur Methadone, Qual Neg Urine Fentanyl Screen Neg Urine Barbiturates Neg Ur Phencyclidine (PCP) Neg U Amphetamin/Meth Scrn Neg MDMA (Ecstasy) Screen Neg U Benzodiazepines Scrn Neg Ur Cocaine Metabolite Neg U Marijuana (THC) Screen Pos H PG Care Time/CCT Total # of Minutes Spent Total Time Spent with Patient: Total time spent is greater than 50% in coordination of care (as documented) at patient's floor/unit and/or counseling patient: Coding Level of Care Code 81182 IN/OBS CONSULT LVL 4,60M Diagnoses Right upper quadrant abdominal pain R10.11 Vomiting R11.10
[2023-12-21] MEDS ORDERED: SIMETHICONE (ENDO) IR PRN (14:57)
[2023-12-21] MEDS: hydrOXYzine HCl 25 MG TAB PO PRN (14:58)
--- NOTE | 2023-12-21 16:03 | Hospitalist Progress Note ---
Date of Service December 21, 2023 Assessment & Plan (1) Right upper quadrant abdominal pain: Plan: RUQ pain disproportionate to investigative findings. DDx: MSK / Psy/Cholecystitis/PUD hx marijuana and opiate use. (positive urine toxicology) USS -> only trace pericholecystic fluid, No stone/no obstruction/wall thickness normal-rest negative HIDA --> negative for cholecystitis and obstruction. LFTs, Bli, lipase WNL BUN normal, Hb Hct stable Surgery team reviewed and d/c from their service and advised for out patient f/u for an elective cholecystectomy. GI team r/vd pt planned for EGD on December 21 to explain her sx. plan: NPO Nausea and pain control AM labs monitor Present on Admission?: Yes (2) Peptic ulcer disease: Plan: known PUD hx of previous bleeds not on any regular PPIs. takes daily ibuprofen daily for her hip pains. epigastric mild tenderness. Plan: PPIs AM labs Present on Admission?: Yes (3) Vomiting: Plan: RUQ pain associated with Nausea and nonbilious /nonbloody vomiting Plan: sx meds IV hydration AM labs Present on Admission?: Yes (4) Anxiety: Plan pt mentioned that she has hx of anxiety. does not remember what she takes started on hydroxyzine today Admission and Anticipated Discharge Date Admission Date: December 20, 2023 Supervising Physician Co-Signing Physician Notes Attending Physician Supervision Note: I independently interviewed and examined the patient and verified the rojas history and physical, reviewed labs and image studies and agree with findings and care plan noted above. Seen this am - pain persistent. vomited after having jello. RUQ/Epigastric pain - No concern of acute cholecystitis. Evaluated by surgery. GI consulted - suspect MSK related pain but considering episodic vomiting and abd pain - EGD planned for am. PPI added on admission - continue. Vomiting - H/o PUD. D/D - paresis, functional dyspepsia, cyclical vomiting syndrome in light of recurrent symptoms, peptic ulcer disease, gastritis For EGD in am. Work excuse form filled out. Subjective pt was seen and evaluated by the bedside this am. Pts was by the bedside. Pt c/o RUQ pain asking for more pain meds. seen by Gastro - planned for EGD on December 21 to explain the cause of her pain sx. (12/20) Urine Tox + for THC and opiates. Review of Systems Review of Systems: Constitutional: denies fever, chills, HEENT: denies congestion, sore throat Cardio: denies chest pain, palpitations Resp: denies shortness of breath, cough GI: denies abdominal pain, vomiting, constipation, diarrhea. Nausea + : denies pain with urination, change in urinary frequency Neuro: denies new numbness, tingling, weakness Physical Exam Physical Exam: General:Alert and oriented, in acute painful distress. No icterus. HEENT: Normocephalic, moist oral mucosa, Cardio: Regular rate and rhythm, no murmur, Resp:Lungs clear to auscultation b/l, no wheezes or rhonchi, GI: Soft and ++ tender RUQ, nondistended, bowel sounds active, Skin: Warm, pink, dry, Psych: Mood-affect congruence. Results & Data Results & Data Vital Signs (Past 12 Hours) Vital Signs Temp Pulse Resp BP Pulse Ox O2 Del Method 12/21/23 14:10 67 19 113/70 99 Room Air 12/21/23 14:10 36.7 C 68 16 119/74 98 Room Air 12/21/23 07:20 36.8 C 64 16 118/71 97 Room Air Resident Activity Tracking Resident Involvement: Resident Care Provided Care Provided: Adult Hospital Medicine (3) Vomiting Nausea presence: with nausea Vomiting type: unspecified Qualified Code(s): R11.2 - Nausea with vomiting, unspecified
[2023-12-21] MEDS: COUGH DROP (SUGAR FREE) LOZ 24 LOZ/1 BOX BUCCAL ONE (21:06)
[2023-12-21] MEDS: PROCHLORPERAZINE 5 MG in SYRINGE 4 ML IV ONE (22:30)
[2023-12-22 07:44] LABS: Basophils # (auto) 0.05 K/uL (0.00-0.20); Basophils % (auto) 0.8 %; Eosinophils # (auto) 0.15 K/uL (0.00-0.50); Eosinophils % (auto) 2.5 %; Hematocrit (blood only) 34.4 % (37.0-47.0); Hemoglobin 11.6 g/dl (12.0-16.0); Immature Granulocytes # (auto) 0.01 K/uL (0.01-0.20); Immature Granulocytes % (auto) 0.2 %; Lymphocytes # (auto) 2.44 K/uL (1.20-3.40); Lymphocytes % (auto) 41.1 %; Mean Corpuscular Hemoglobin 30.2 pg (25.0-34.0); Mean Corpuscular Hgb Conc 33.7 g/dL (32.0-36.0); Mean Corpuscular Volume 89.6 fL (80.0-100.0); Mean Platelet Volume 12.5 fL (9.4-12.4); Monocytes # (auto) 0.45 K/uL (0.11-0.59); Monocytes % (auto) 7.6 %; Neutrophils # (auto) 2.83 K/uL (1.40-6.50); Neutrophils % (auto) 47.8 %; Platelet Count 170 K/uL (130-400); RDW Coefficient of Variation 13.8 % (11.5-14.5); RDW Standard Deviation 45.3 fL (36.4-46.3); Red Blood Count 3.84 M/uL (4.20-5.40); White Blood Count 5.93 K/ul (4.8-10.8)
[2023-12-22 07:56] LABS: BUN Creatinine Ratio 14.3 (10-20); Creatinine Clr Calc Pharmacy 107.7 ml/min; Est GFR (African American) 135.6 ml/min; Potassium 3.4 mmol/L (3.5-5.1)
[2023-12-22] MEDS: POTASSIUM CHLORIDE / WTR 10 MEQ/100 ML PLCT IV SCH (09:24)
--- NOTE | 2023-12-22 09:40 | History & Physical Bridge Note ---
Date of Service December 22, 2023 History & Physical Bridge Note I have examined the patient, reviewed the History & Physical and in the interval since the performance of the History & Physical I have noted the following changes of clinical significance: Patient is vomiting bile. Will coordinate with Dr. Serrano & anesthesia regarding the plans for her EGD to be done in endoscopy unit vs OR. She is receiving Zofran at the time of my visit and will be receiving IV K as well. Keep NPO. Supervising Physician Co-Signing Physician Notes I saw and examined this patient with our nurse practitioner and agree with her assessment and plan. Will proceed with endoscopy for further evaluation.
[2023-12-22] MEDS: DEXTROSE 50% 50 ML SYRINGE IV ONE (10:12)
[2023-12-22] MEDS ORDERED: ONDANSETRON INJ 2 MG/ML 2 ML VIAL ONE (10:55)
[2023-12-22] MEDS ORDERED: LIDOCAINE 2% 2 ML VIAL/AMP(20MG/ML) INFIL ONE (10:55)
[2023-12-22] MEDS ORDERED: fentaNYL citrate PF 100 MCG/2 ML VIAL ONE (10:55)
[2023-12-22] MEDS ORDERED: MIDAZOLAM HCL 1 MG/ML 2ML VIAL ONE (10:55)
[2023-12-22] MEDS ORDERED: DEXAMETHASONE SOD INJ 4 MG/ML VIAL ONE (10:55)
[2023-12-22] MEDS ORDERED: SUCCINYLCHOLINE CHLORIDE 20 MG/ML 10 ML VIAL IV ONE (10:55)
[2023-12-22] MEDS ORDERED: PROPOFOL IV EMULSION 10 MG/ML 20 ML VIAL IV ONE (10:55)
--- NOTE | 2023-12-22 10:57 | Anesthesiology Consultation ---
Date of Service December 22, 2023 Assessment & Plan (1) Encounter for pre-operative examination: Chart Review Chart Review: Acceptable Risk for Surgery History Surgery Operation Date: 12/22/23 07:00 Proposed Procedures p Esophagogastroduodenoscopy Kirby Serrano MD Operation Date: 12/22/23 16:30 Proposed Procedures p Esophagogastroduodenoscopy Dr. Serrano - Benito Serrano MD Height/Weight Height: 4 ft 11 in Weight: 70.7 kg Allergies Allergy/AdvReac Type Severity Reaction Status Date / Time tramadol Allergy Intermediate HIVES/RASH Verified 03/01/23 01:53 morphine AdvReac Severe SEVERE Verified 03/01/23 01:53 VOMITING Medications Home Medications Medication Instructions Recorded Confirmed Last Taken No Known Home Medications 03/01/23 12/20/23 Unknown Active Medications Generic Name Dose Route Start Last Admin Trade Name Freq PRN Reason Stop Dose Admin Hydromorphone HCl 0.5 mg 12/20/23 17:14 12/22/23 02:34 Hydromorphone Inj 0.5 Mg/0.5 Ml Syr IV 01/03/24 17:13 0.5 mg Q4H PRN Administration pain, breakthrough Hydroxyzine HCl 25 mg 12/21/23 14:36 12/21/23 21:06 Hydroxyzine Hcl 25 Mg Tab PO 01/20/24 14:44 25 mg Q6H PRN Administration Anxiety Pantoprazole Sodium 40 mg/ 10 mls @ 5 mls/min 12/20/23 21:00 12/22/23 08:19 Syringe IV 01/19/24 20:59 5 mls/min BID JUAN C Administration Lactated Ringer's 1,000 mls @ 125 mls/hr 12/20/23 17:15 12/22/23 02:30 Lr IV 01/19/24 17:14 125 mls/hr .Q8H JUAN C Administration Acetaminophen 1,000 mg in 100 mls @ 400 mls/hr 12/20/23 17:14 12/22/23 08:50 Ofirmev IV 12/23/23 17:13 Infused Q8H PRN Infusion Fever/Mild Pain (Pain 1,2,3) Potassium Chloride 10 meq in 100 mls @ 100 mls/hr 12/22/23 08:30 12/22/23 10:58 K Alfonso / Wtr IV 12/22/23 12:29 100 mls/hr Q1H JUAN C Administration Miscellaneous 1 each 12/21/23 08:59 12/22/23 08:19 Remove Nicoderm Patch N/A 01/20/24 08:58 1 each DAILY@0859 JUAN C Administration Nicotine 1 patch 12/20/23 15:30 12/22/23 08:20 Nicotine 21 Mg/24 Hr Tdsy TD 01/19/24 15:29 1 patch QAM JUAN C Administration Ondansetron HCl 4 mg 12/20/23 17:14 12/22/23 09:16 Ondansetron Inj 2 Mg/Ml 2 Ml Vial IV 01/19/24 17:13 4 mg Q4H PRN Administration Nausea Past Medical History Medical History (Updated 12/22/23 @ 11:01 by Cleveland Hood MD) Anxiety Peptic ulcer disease Bilateral hip joint arthritis Past Surgical History Surgical History (Updated 12/22/23 @ 11:00 by Cleveland Hood MD) History of open reduction and internal fixation (ORIF) procedure b/l hips as child Social History Smoking Status: Current every day smoker Smoking cigarettes per day: 1 pack per day Do You Dip or Chew Tobacco: No Hx Alcohol Use: Yes Alcohol type: wine and hard liquor alcohol intake frequency: holidays/special occasions only Hx Substance Use: Yes substance use type: marijuana Last Used Substance: Unknown Last Used Substance Other:: Occasional use Physical Exam Vital Signs Last Vital Signs Temp 36.6 C 12/22/23 07:51 Pulse 72 12/22/23 07:51 Resp 18 12/22/23 07:51 BP 99/59 L 12/22/23 07:51 Pulse Ox 95 12/22/23 07:51 O2 Del Method Room Air 12/22/23 07:51 Testing Laboratory Results 12/22/23 07:00 12/22/23 07:00 Urine Color Yellow 12/19/23 23:23 Urine Appearance Clear (Clear) 12/19/23 23:23 Urine pH 6.5 (4.5-7.5) 12/19/23 23:23 Ur Specific [place] 1.027 (1.000-1.030) 12/19/23 23:23 Urine Protein Negative (Negative) 12/19/23 23:23 Urine Glucose (UA) Negative (Negative) 12/19/23 23:23 Urine Ketones Negative (Negative) 12/19/23 23:23 Urine Nitrite Negative (Negative) 12/19/23 23:23 Ur Leukocyte Esterase Negative (Negative) 12/19/23 23:23 12/22/23 10:07 POC Glucose 74
[2023-12-22] MEDS ORDERED: DROPERIDOL 5 MG/2 ML VIAL ONE (11:14)
[2023-12-22] MEDS ORDERED: fentaNYL citrate PF 100 MCG/2 ML VIAL IV PRN (11:54)
[2023-12-22] MEDS ORDERED: ATROPINE SULFATE 0.1 MG/ML 10ML SYR IV PRN (11:54)
--- NOTE | 2023-12-22 12:45 | GI REPORT ---
[facility] Patient: GABO SHERMAN : 1990 Sex at : Female Age: 33 Years Procedure: Upper GI endoscopy Date: 12/22/2023 Attending Physician: Benito Serrano MD Referring MD: Farzana Williamson Indications: - Nausea and vomiting Medications: - Monitored Anesthesia Care Complications: - No immediate complications. Procedure: - Prior to the procedure, a History and Physical was performed, and patient medications and allergies were reviewed. The patient's tolerance of previous anesthesia was also reviewed. The risks and benefits of the procedure and the sedation options and risks were discussed with the patient. All questions were answered, and informed consent was obtained. [Anticoagulant Agents] [Days Prior to Procedure]. [ASA Grade]. After reviewing the risks and benefits, the patient was deemed in satisfactory condition to undergo the procedure. - The egd scope was introduced through the mouth and advanced to the second part of the duodenum. - The upper GI endoscopy was accomplished without difficulty. - The patient tolerated the procedure well. Findings: - The examined esophagus was normal. - Patchy moderate inflammation characterized by erosions and erythema was found in the gastric antrum. Multiple biopsies were obtained in the gastric antrum and in the gastric body with cold forceps for histology. - The examined duodenum was normal. Impression: - Normal esophagus. - Gastritis, characterized by erosions and erythema. - Multiple biopsies were obtained in the gastric antrum and in the gastric body. - Normal examined duodenum. Recommendation: - Resume previous diet. - Patient has a contact number available for emergencies. The signs and symptoms of potential delayed complications were discussed with the patient. Return to normal activities tomorrow. Written discharge instructions were provided to the patient. Procedure Code(s): - 17180, Esophagogastroduodenoscopy, flexible, transoral; with biopsy, single or multiple Diagnosis Code(s): - K29.70, Gastritis, unspecified, without bleeding CPT(R) - 2023 copyright [employer]. All Rights Reserved. The CPT codes, CCI edits and ICD codes generated are intended as suggestions and were generated based on input data. These codes are preliminary and upon ncr operator review may be revised to meet current compliance and payer requirements. The provider is responsible for the final determination of appropriate codes, and modifiers. Benito Serrano MD This document has been electronically signed. Note Initiated:12/22/2023 Note Completed:12/22/2023 12:44 PM [email or web address]\[email or web address]\[id number]
--- NOTE | 2023-12-22 12:52 | Anesthesiology Progress Note ---
Date of Service December 22, 2023 Anesthesia Post Procedure Vital Signs Vital Signs: Temp Pulse Pulse Resp BP BP Pulse Ox 12/22/23 12:50 62 16 118/62 98 12/22/23 12:40 67 16 123/69 98 12/22/23 12:31 37.2 C 72 16 127/72 97 12/22/23 11:33 36.9 C 70 18 124/70 98 12/22/23 07:51 36.6 C 72 18 99/59 L 95 12/21/23 22:17 36.8 C 61 16 113/71 95 12/21/23 14:10 67 19 113/70 99 12/21/23 14:10 36.7 C 68 16 119/74 98 O2 Del Method O2 Flow Rate 12/22/23 12:50 Nasal Cannula 2 12/22/23 12:40 Nasal Cannula 2 12/22/23 12:31 Nasal Cannula 2 12/22/23 11:33 Room Air 12/22/23 07:51 Room Air 12/21/23 22:17 Room Air 12/21/23 14:10 Room Air 12/21/23 14:10 Room Air Pain Intensity Right Upper Abdomen: Pain Intensity: 4 Transfer of Care Handoff Completed per policy Notes Mental Status: alert / awake / arousable Patient Amnestic to Procedure: Yes Nausea / Vomiting: adequately controlled Pain: adequately controlled Airway Patency, RR, SpO2: stable & adequate BP & HR: stable & adequate Hydration State: stable & adequate Anesthetic Complications: no major complications apparent
--- NOTE | 2023-12-22 14:04 | Hospitalist Progress Note ---
Date of Service December 22, 2023 Assessment & Plan (1) Gastritis: Plan: Pt pain better today. Only mild tenderness in RUQ and epigastrium. EGD done today, Dx: Gastritis with erosion and erythema. No ulcer or bleed. plan: C/W IV Pantoprazole 40mg IV BID Started on Clear liquids trial Nausea and pain control PRN AM labs and replete any if needed. (2) Anxiety: Plan: pt mentioned that she has hx of anxiety. does not remember what she takes. started on hydroxyzine Admission and Anticipated Discharge Date Admission Date: December 23, 2023 Supervising Physician Co-Signing Physician Notes Attending Physician Supervision Note: I independently interviewed and examined the patient and verified the rojas history and physical, reviewed labs and image studies and agree with findings and care plan noted above. RUQ/Epigastric pain - No concern of acute cholecystitis. Evaluated by surgery. GI consulted - EGD done - gastritis and erosion. Continue PPI. Slowly advance diet. Vomiting - Slowly advance diet. Once tolerating - will d/c home. Work excuse form filled out 12/21 Subjective pt was seen and evaluated by the bedside this am. Pts was by the bedside. Pt says her pain is bit better today. Pt had EGD this afternoon(uneventful): reported as gastritis with erosion and erythema. No evidence of ulcer/bleed. Started on clear liquids trial. Review of Systems Review of Systems: Constitutional: denies fever, chills, HEENT: denies congestion, sore throat Cardio: denies chest pain, palpitations Resp: denies shortness of breath, cough GI: mild abdominal pain, vomiting, constipation, diarrhea. Nausea + : denies pain with urination, change in urinary frequency Neuro: denies new numbness, tingling, weakness Physical Exam Physical Exam: General:Alert and oriented, in mild paiful distress. No icterus. HEENT: Normocephalic, moist oral mucosa, Cardio: Regular rate and rhythm, no murmur, Resp:Lungs clear to auscultation b/l, no wheezes or rhonchi, GI: Soft and mildly tender RUQ, nondistended, bowel sounds active, Skin: Warm, pink, dry, Psych: Mood-affect congruence. Results & Data Results & Data Vital Signs (Past 12 Hours) Vital Signs Temp Pulse Pulse Resp BP BP Pulse Ox 12/22/23 13:57 37 C 58 L 17 122/75 96 12/22/23 13:33 37.1 C 69 17 115/74 95 12/22/23 13:10 60 16 117/78 98 12/22/23 13:00 36.8 C 61 16 121/64 98 12/22/23 12:50 62 16 118/62 98 12/22/23 12:40 67 16 123/69 98 12/22/23 12:31 37.2 C 72 16 127/72 97 12/22/23 11:33 36.9 C 70 18 124/70 98 12/22/23 07:51 36.6 C 72 18 99/59 L 95 O2 Del Method O2 Flow Rate 12/22/23 13:57 Room Air 12/22/23 13:33 Room Air 12/22/23 13:10 Nasal Cannula 2 12/22/23 13:00 Nasal Cannula 2 12/22/23 12:50 Nasal Cannula 2 12/22/23 12:40 Nasal Cannula 2 12/22/23 12:31 Nasal Cannula 2 12/22/23 11:33 Room Air 12/22/23 07:51 Room Air Resident Activity Tracking Resident Involvement: Resident Care Provided Care Provided: Adult Hospital Medicine (1) Gastritis Chronicity: acute Gastritis bleeding: without bleeding Gastritis type: unspecified gastritis Qualified Code(s): K29.00 - Acute gastritis without bleeding
[2023-12-23 07:22] VITALS: BP 140/91; PULSE 77; RESP 17; TEMP 98.2; O2SAT 96
[2023-12-23 07:49] LABS: Basophils # (auto) 0.03 K/uL (0.00-0.20); Basophils % (auto) 0.3 %; Eosinophils # (auto) 0.06 K/uL (0.00-0.50); Eosinophils % (auto) 0.5 %; Hematocrit (blood only) 33.6 % (37.0-47.0); Hemoglobin 11.3 g/dl (12.0-16.0); Immature Granulocytes # (auto) 0.03 K/uL (0.01-0.20); Immature Granulocytes % (auto) 0.3 %; Lymphocytes # (auto) 1.97 K/uL (1.20-3.40); Mean Corpuscular Hemoglobin 29.8 pg (25.0-34.0); Mean Corpuscular Hgb Conc 33.6 g/dL (32.0-36.0); Mean Corpuscular Volume 88.7 fL (80.0-100.0); Monocytes % (auto) 6.9 %; Platelet Count 164 K/uL (130-400); RDW Coefficient of Variation 13.6 % (11.5-14.5); RDW Standard Deviation 44.2 fL (36.4-46.3); Red Blood Count 3.79 M/uL (4.20-5.40); White Blood Count 11.59 K/ul (4.8-10.8)
[2023-12-23 08:02] LABS: BUN Creatinine Ratio 5.1 (10-20); Calcium 8.3 mg/dl (8.6-10.3); Est GFR (African American) 138.6 ml/min; Est GFR (Non-African American) 119.6 ml/min; Magnesium 1.5 mg/dl (1.7-2.4); Potassium 3.5 mmol/L (3.5-5.1)
[2023-12-23] MEDS: MAGNESIUM SULFATE / D5W 1 GM/100 ML BAG IV SCH (10:51)
--- NOTE | 2023-12-23 11:00 | Gastroenterology Progress Note ---
Date of Service December 23, 2023 Assessment & Plan (1) Gastritis: Plan: -Continue Protonix 40 mg daily upon discharge -Patient notes she is going home today; biopsies pending so these results will be communicated to her as an outpatient Admission and Anticipated Discharge Date Admission Date: December 20, 2023 Supervising Physician Co-Signing Physician Notes I saw and examined this patient with our nurse practitioner and agree with her assessment and plan. Subjective Patient is a 33 yo female with nausea, vomiting, & epigastric discomfort. Patient had an EGD on 12/22/23 that indicated erosive gastritis. Biopsies pending. She notes improvement of nausea/vomiting. She notes some loose stool this AM. She would like to advance her diet and go home today. Review of Systems Gastrointestinal: no abdominal pain, no nausea and no vomiting Physical Exam Constitutional: well developed Respiratory: normal respiratory effort Gastrointestinal (Abdomen): normal bowel sounds, soft, nontender, no hepatosplenomegaly Psychiatric: Orientation: alert and oriented x 3 Results & Data Results & Data Vital Signs (Past 12 Hours) Vital Signs Temp Pulse Pulse Resp BP BP Pulse Ox 12/23/23 07:18 36.8 C 77 17 140/91 96 12/23/23 04:10 37.0 C 82 18 122/78 95 12/22/23 23:21 37.1 C 67 16 122/84 95 O2 Del Method 12/23/23 07:18 Room Air 12/23/23 04:10 Room Air 12/22/23 23:21 Room Air PG Care Time/CCT Total # of Minutes Spent Total Time Spent with Patient: Total time spent is greater than 50% in coordination of care (as documented) at patient's floor/unit and/or counseling patient: Coding Level of Care Code 38575 SUB INP/OBS CARE MIN Diagnoses Acute gastritis without hemorrhage, unspecified gastritis type K29.00 Chronicity: acute Gastritis bleeding: without bleeding Gastritis type: unspecified gastritis (1) Gastritis Chronicity: acute Gastritis bleeding: without bleeding Gastritis type: unspecified gastritis Qualified Code(s): K29.00 - Acute gastritis without bleeding
[2023-12-23 14:27] LABS: Codeine Urine NEGATIVE ng/mL (<50); Hydrocodone Urine NEGATIVE ng/mL (<50); Hydromor Urine 1520 ng/mL (<50); Marijuana Quant, GCMS Urine 643 ng/mL (<5); Morphine Urine NEGATIVE ng/mL (<50); Norhydrocodone Conf Ur NEGATIVE ng/mL (<50); Noroxycodone Urine NEGATIVE ng/mL (<50); Oxycodone Urine NEGATIVE ng/mL (<50); Oxymorph Urine NEGATIVE ng/mL (<50)
--- NOTE | 2023-12-23 17:24 | Discharge Summary ---
Date of Service December 23, 2023 Admission HPI Per Admitting Provider Selena is a 33-year-old female with a past medical history of hip arthritis and GI issues followed in [place] who presented with right upper quadrant pain. Over the past few years has had issues with cholecystitis treated medically with antibiotics Did not get a saleem because always improved with abx and did not have insurance at the time Patient has also been taking Sukhwinder/orlistat, has not taken this in around 5 days. Gets cold at night and some sweats at night normally, no change in th elast 3 years. Denies new fever, chills. Endorses nausea, and a lot of vomiting yesterday. Emesis was brownish. No bloo d/melena. No bloody or black bowel movements No diarrhea today Has a history of a deteriorating bone disease which requried hip surgeries at age 11, 12. Has hardware and rods in both hips. This was performed in [place],believes this was Dr. Jose Manuel [place] ([place], [place]). Last PCP was Dr. Chavira in [place], [place] at [facility]. No prescription medications No recent prescripation Has never had an upper endo or colonoscopy Does have a hsitory of severe GERD and heartburn. Gets this with any greasy or fatty foods. Takes 800mg ibuprofen and 500mg ibuprofen at least once a day, sometimes i buprofen up to three times per day. Has used ibuprofen week. Does not notice an association that the ibuprofen makes the epigastric/RUQ pain worse. RUQ is much more tender than epigastric, but is tender in both Yesterday had resurgence of pain similar to which needed tx - Had greasy and oil food when in [place] prior to onset of severe pain. [place]cock foods have triggered gallbladder attacks in the past - Endorses some loose BMs in the last week - No greasy or monserrat colored bowel movements, but has had loose/greasy BMs in the past and when on Sukhwinder - Has a history of bleeding ulcers in 2008, did not have an EGD at the time. "If you don't have insurance down there they just won't touch you." Moved to [place] with her boyfriend. Has been here for 2 years now. Does nto have a PCP here yet, just got insurance and docs for her kids and is working on establishing with a PCP. - Normal food does not always affect her pain. Doesnotice some swelling after eating bad foods and gets easy bloating. Medical History: Reviewed Medications: Reviewed Surgical History: Reviewed Family history: Reviewed Allergies: Reviewed. Morphine --> vomiting. Tramdol --> Itching Social History: 1ppd cigarette use. Vapes at work when she can't smoke. Rare social ETOH. Rare marijuana edible, none recently Code Status: Full Code Admission Exam Per Admitting Provider General: A&Ox3. NAD. Cooperative. HEENT: Atraumatic, normocephalic. Pulm: CTAB A&P. -wheezes, -rales, -rhonchi. Symmetrical chest rise. No increased work of breathing. No respiratory distress. Cardiac: RRR, -mrg. Radial pulses intact and symmetrical. Abdominal: RUQ prominently TTP, epigastrum TTP. No rebound/guarding Ext: Warm, dry Principal Diagnosis Gastritis Discharge Exam General:Alert and oriented, minimal painful distress. No icterus. HEENT: Normocephalic, moist oral mucosa, Cardio: Regular rate and rhythm, no murmur, Resp:Lungs clear to auscultation b/l, no wheezes or rhonchi, GI: Soft and mildly tender epigastrium, nondistended, bowel sounds active, Skin: Warm, pink, dry, Psych: Mood-affect congruence. Discharge Data Allergies Allergy/AdvReac Type Severity Reaction Status Date / Time tramadol Allergy Intermediate HIVES/RASH Verified 03/01/23 01:53 morphine AdvReac Severe SEVERE Verified 03/01/23 01:53 VOMITING Consultations 12/20/23 05:03 Consult General Surgery Stat 12/20/23 05:23 ED Decision to Admit Stat 12/21/23 12:55 Consult Gastroenterology Routine Procedures Performed 12/22/23 EGD: Normal esophagus. Gastritis, characterized by erosions and erythema. Normal examined duodenum. Ordered Studies 12/20/23 US Abdo: No demonstrated cholelithiasis. Question trace pericholecystic fluid. Reported positive sonographic Mortensen's sign. The need for nuclear HIDA scan can be determined clinically. Normal CBD. Otherwise unremarkable right upper quadrant abdominal ultrasound.. HIDA: 1. No evidence for cystic duct obstruction. 2. Abnormal gallbladder ejection fraction calculated to be 24 %. This could be abnormally decreased due to the radiotracer within the overlapping bowel. KUB Xray: 1. Nonobstructive bowel gas pattern. 2. No pneumoperitoneum identified by radiography. Hospital Course (1) Gastritis: Upper abdomen pain improved. EGD: Gastritis with erosion and erythema. No ulcer or bleed. Initially Ix for possible cholecystitis, given her presentation of RUQ and upper abdo pain and her report of previous admissions for RUQ /cholecystitis.All the tests were negative for any acute cholecystitis including blood work up, USS, HIDA scan. Pt was evaluated by gen surgery and d/cd from their inpt-service and advised her to folllow up in their OP clinic. Pt was also evaluated by GI who performed EGD that showed gastritis. Pt is advised to C/W PO Pantoprazole 40mg BID for a month and other symptomatic medication for pain and nausea control that were prescribed. Advised to avoid ibuprofen, alcohol, spicy foods and excess coffee. Due to persistent reported pain - was prescribed 5 days of sucralfate and 7tab of hydrocodone. Outpatient f/u with PCP (2) Anxiety: c/w hydroxyzine and f/u with PCP. Total Time Total Time Spent Total Time Spent (In Minutes): as per the attending entry Discharge Plan Discharge Items Patient Disposition: Home - Self-Care Reason For Visit: RUQ/EPIGASTRIC PAIN ?PUB VS SALEEM Discharge Diagnosis: Gastritis Activity: Per Instructions section Non-emergency contact: Primary Care Provider Call non-emergency contact if: your symptoms worsen, your pain is worsening and your pain is unusual for you Follow-up/Referrals: Madelaine Quintana, [Physician] - PCP,NO [Primary Care Provider] - Diet: Regular Addtl Attending Provider Instructions: You were admitted to the hospital for evaluation of upper abdominal pain. Your blood tests were normal. You have been investigated for any possible gall bladder inflammation called cholecystitis but all the tests related to it were negative. An Ultrasound scan ( that looked at the structure of your gall bladder and liver) and HIDA ( Nuclear scan) did not show any acute inflammation and or obstruction of your gallbladder or its structures. Given your symptoms you were evaluated by GI team and they did EGD test (camera test of your gullet and stomach) that showed irritation of your stomach lining called "gastritis". You were also evaluated by general surgery team and they have recommended that you follow up with them at the clinic. Try to avoid the following as they can irritate your stomach lining and worsen gastritis: x Ibuprofen (NSAIDS) x Alcohol x Spicy foods x Excess coffee Medications: Your medication list has been reviewed and reconciled upon discharge to ensure accuracy and continuity of care. An updated list of all your medications is included with your hospital discharge paperwork. Please review this list closely and make note of any changes to your medications. You were advised to continue on the following medication: PO Pantoprazole 40mg twice a day PO Ondansetron 4mg as needed for nausea / vomiting. PO Tylenol 1000mg up to 3 times a day as needed for pain. You are also prescribed short course of sucralfate to help with pain and 7 tablets of Hydrocodone. Limiting marijuana use will help with the abdominal pain as well Follow up appointments: - Make a follow up appointment with your PCP within the next week. It is very important that you follow up with them shortly after discharge from the hospital. -Follow up with general surgery at out patient clinic in 1-2 weeks time. -Keep all of your follow up appointments as already scheduled. If you cannot make an appointment, notify your provider. CONTACT YOUR PRIMARY CARE PROVIDER if you experience any of the following: - Difficulty following your treatment plan - Difficulty taking any of your medications CALL 911 OR GO TO THE EMERGENCY DEPARTMENT if you experience any of the following: - Sudden, severe abdominal pain or nausea/vomiting - Severe chest pain or chest pain that radiates to your jaw or arm - Sudden, severe shortness of breath or difficulty breathing Pending Studies at Discharge: No Stand-Alone Forms: My [facility], Pain - Opioid Pain Management, Smoking Cessation Medications and DC Order Prescriptions: New hydroxyzine HCl 25 mg Tablet 25 mg PO 1XD PRN (Reason: anxiety) 30 Days Qty: 30 1RF MAG-AL 200-200 mg/5 mL Suspension 30 ml PO 2XD PRN (Reason: dyspepsia) 7 Days Qty: 120 1RF ondansetron HCl 4 mg tablet 4 mg PO DAILY Qty: 10 0RF pantoprazole 40 mg tablet,delayed release (DR/EC) 40 mg PO BID 15 Days Qty: 30 0RF hydrocodone-acetaminophen 5-300 mg tablet 1 tab PO TID PRN (Reason: pain) Qty: 7 0RF sucralfate 100 mg/mL suspension 1 g PO ACHS Qty: 150 0RF Discharge Orders: Discharge Order (Routine); Ordered 12/23/23 Ordered By: Khari Shepherd/Other Patient Handouts: ED Gastritis (Adult) Admission Data Admit Date/Time: 12/20/23 12:07 Attending Provider: Farzana Williamson Admit Provider: Andres Sommers Primary Care Provider: PCP,TORITO Other Providers: Andres Sommers; Madelaine Quintana; Carmenza Olvera; Benito Serrano I Other Interventions: Discharge Summary Assessment (RN) Last Done: 12/23/23 16:25 Supervising Physician Co-Signing Physician Notes Attending Physician Supervision Note: I independently interviewed and examined the patient and verified the rojas history and physical, reviewed labs and image studies and agree with findings and care plan noted above. Resident Activity Tracking Resident Involvement: Resident Care Provided Care Provided: Adult Hospital Medicine
== END 2023-12-23 17:32 | disposition home or self-care (01) ==
LOC: 3N 21:59 → ED 21:59 → SUATTDRO 12-20 12:07 → 3N 12-20 14:34